=== PATIENT | female | born 1990 | race Caucasian/White ===

== ENCOUNTER 2019-12-09 05:51 | Inpatient (IN) | payer MEDICAID ==
[~2019-12-09] VITALS: Ht 167.6 cm; Wt 87.5 kg
[2019-12-09] MEDS ORDERED: PREN1TAB78 PO (07:07)
[2019-12-09] MEDS ORDERED: CHOL40002 PO (07:07)
[2019-12-09] MEDS ORDERED: DEXT 5%/LR + PITOCIN 20UNITS/L 1,000 ML IV SCH (07:10)
[2019-12-09] MEDS ORDERED: METHYLERGONOVINE MALEATE 0.2 MG/ML IM PRN (07:15)
[2019-12-09] MEDS ORDERED: NALOXONE HCL 0.4 MG/ML 1ML VIAL IM PRN (07:15)
[2019-12-09 07:27] LABS: BASOPHILS % 0.4 % (0.0-2.0); EOSINOPHILS % 1.6 % (0.0-5.0); HEMATOCRIT. 35.6 % (36.0-48.0); HEMOGLOBIN. 12.5 g/dL (12.0-16.0); LYMPHOCYTES % 20.3 % (20.0-50.0); MEAN CORPUSCULAR HEMOGLOBIN 31.4 pg (28.0-32.0); MEAN CORPUSCULAR VOLUME 89.5 fL (81.0-99.0); MEAN PLATELET VOLUME 9.7 fl (7.4-10.4); MONOCYTES % 8.3 % (2.0-8.0); NEUTROPHILS % 69.4 % (40.0-76.0); PLATELET 168 x1000/uL (130-400); RED BLOOD CELL COUNT 3.98 mill/uL (4.2-5.4); RED CELL DISTRIBUTION WIDTH 13.7 % (11.6-14.6)
[2019-12-09] MEDS ORDERED: LACTATED RINGERS 1,000 ML IV SCH (07:30)
[2019-12-09 07:36] LABS: CLARITY URINE CLOUDY (CLEAR); COLOR URINE DK YELLOW (YELLOW); KETONES URINE NEGATIVE (NEGATIVE); LEUKOCYTE ESTERASE URINE 2+ (NEGATIVE); NITRITE URINE NEGATIVE (NEGATIVE); OCCULT BLOOD URINE NEGATIVE (NEGATIVE); PH URINE 7.5 (4.5-8.0); PROTEIN URINE NEGATIVE (NEGATIVE); SPECIFIC GRAVITY URINE 1.019 (1.005-1.030); UROBILINOGEN URINE 0.2 E.U./dL (0.2-1.0)
[2019-12-09 07:39] LABS: *AMPHETAMINES SCREEN URINE NEGATIVE (NEGATIVE); *BARBITURATES SCREEN URINE NEGATIVE (NEGATIVE); *BENZODIAZEPINES SCREEN URINE NEGATIVE (NEGATIVE); *COCAINE SCREEN URINE NEGATIVE (NEGATIVE); METHADONE URINE SCREEN NEGATIVE (NEGATIVE); OPIATES URINE SCREEN NEGATIVE (NEGATIVE)
[2019-12-09 07:40] LABS: CANNABINOID URINE SCREEN NEGATIVE (NEGATIVE); PHENCYCLIDINE URINE SCREEN NEGATIVE (NEGATIVE)
[2019-12-09] MEDS ORDERED: EPHEDRINE SULFATE 50MG/ML VIAL ONE (07:50)
[2019-12-09] MEDS ORDERED: MORPHINE SULFATE/PF 1MG/ML 10ML AMP ONE (07:50)
[2019-12-09] MEDS ORDERED: CEFAZOLIN SODIUM 1000MG/VIAL ONE (07:50)
[2019-12-09] MEDS ORDERED: SUCCINYLCHOLINE CHLORIDE 200MG/10ML IV ONE (07:52)
[2019-12-09] MEDS ORDERED: NALOXONE HCL 0.4 MG/ML 1ML VIAL IV PRN (08:00)
[2019-12-09] MEDS ORDERED: ONDANSETRON HCL 4MG/2ML INJ IM PRN (08:00)
[2019-12-09] MEDS ORDERED: BUTORPHANOL TARTRATE 2 MG/ML VIAL IV PRN (08:00)
[2019-12-09] MEDS ORDERED: DIPHENHYDRAMINE 50MG/ML VIAL IM PRN (08:00)
[2019-12-09 08:02] LABS: HEPATITIS B SURFACE ANTIGEN NEGATIVE
[2019-12-09] MEDS ORDERED: [UNRECOGNIZED DRUG - OTHER] IR ONE (08:15)
[2019-12-09 08:19] LABS: INR 0.9; PARTIAL THROMBOPLASTIN TIME 26.8 sec (23.4-31.0); PROTHROMBIN TIME 10.1 sec (9.6-11.0)
[2019-12-09] MEDS ORDERED: ONDANSETRON HCL 4MG/2ML INJ ONE (08:52)
[2019-12-09] MEDS ORDERED: OXYTOCIN 10 UNITS/ML 1ML ONE (08:52)
[2019-12-09] MEDS ORDERED: [UNRECOGNIZED DRUG - OTHER] IR SCH (09:00)
[2019-12-09] MEDS ORDERED: [UNRECOGNIZED DRUG - OTHER] IR SCH (09:00)
[2019-12-09] MEDS ORDERED: BUPIVACAINE HCL IR SCH ×2 (09:00)
[2019-12-09] MEDS ORDERED: DIPHENHYDRAMINE 25MG CAPSULE PO PRN (09:15)
[2019-12-09] MEDS ORDERED: HYDROMORPHONE HCL/PF 2MG/ML CPJ IM PRN (09:15)
[2019-12-09] MEDS ORDERED: HYDROCODONE/ACETAMINOPHEN 5/325MG TABLET PO PRN (09:15)
[2019-12-09] MEDS ORDERED: IBUPROFEN 400MG TABLET PO PRN (09:15)
[2019-12-09] MEDS ORDERED: LANOLIN OINT 7GM TUBE TOP PRN (09:15)
[2019-12-09] MEDS ORDERED: ONDANSETRON HCL 4MG/2ML INJ IV PRN (09:15)
[2019-12-09 12:00] VITALS: BP 104/63
[2019-12-09 16:30] VITALS: BP 97/63
[2019-12-09 19:30] VITALS: BP 103/61
[2019-12-09] MEDS: DOCUSATE SODIUM 100MG CAPSULE PO SCH (21:06)
[2019-12-10] VITALS: BP 100/60
[2019-12-10 04:00] VITALS: BP 108/62
[2019-12-10 06:57] LABS: HEMATOCRIT 30.4 % (36.0-48.0); HEMOGLOBIN 10.6 g/dL (12.0-16.0); MEAN CORPUSCULAR HEMOGLOBIN 31.3 pg (28.0-32.0); MEAN CORPUSCULAR VOLUME 90.1 fL (81.0-99.0); PLATELET 134 x1000/uL (130-400); RED BLOOD CELL COUNT 3.37 mill/uL (4.2-5.4); RED CELL DISTRIBUTION WIDTH 13.6 % (11.6-14.6)
[2019-12-10 08:00] VITALS: BP 100/56
[2019-12-10 14:00] VITALS: BP 98/52
[2019-12-10 20:00] VITALS: BP 100/62
[2019-12-10] MEDS: DOCUSATE SODIUM 100MG CAPSULE PO SCH (21:16)
[2019-12-11] VITALS: BP 128/60
[2019-12-11 04:00] VITALS: BP 101/55
[2019-12-11 08:00] VITALS: BP 100/53
[2019-12-11] MEDS ORDERED: DOCU-138 MT (12:09)
[2019-12-11] MEDS ORDERED: HYDR-3281 MT (12:09)
== END 2019-12-11 13:45 | disposition home or self-care (01) | DRG 540 ==
LOC: 8 EST LDRP 05:51 → 8EST 11:40
PROVIDERS: ADMIT Obstetrics & Gynecology; ATTEND Obstetrics & Gynecology
PROC: 10D00Z1 Extraction of Products of Conception, Low, Open Approach (ICD-10-PCS; principal; 2019-12-09)
DX: O34.211 Maternal care for low transverse scar from previous cesarean delivery (principal); Z37.0 Single live birth; Z3A.39 39 weeks gestation of pregnancy
CPT/HCPCS: 36415; 80305; 81003; 85025; 85027; 86592; 86703; 86762; 86850; 86900; 87077; 87340; 88307; J0330; J0690; J2274; J2405; J2590; J3490; J7120